=== PATIENT | male | born 1990 | race Two or more races ===

== ENCOUNTER 2016-10-05 20:12 | Emergency (ER) | payer OTHER ==
[~2016-10-05] VITALS: Ht 175.3 cm; Wt 81.6 kg
[2016-10-05] MEDS ORDERED: NKM (20:22)
[2016-10-05] MEDS ORDERED: Bacitracin Oint UD TOPIC ONE (20:30)
--- NOTE | 2016-10-05 20:31 | Emergency Room Report ---
History of Present Illness General Chief Complaint: Pain Source: Patient Present Illness HPI At 5:30 PM the patient was lifting a box. He felt something sharp in his left antecubital area. There was a spider there. (He was shown a picture of a black and states it was not this type of spider.) It's body and legs were brown. He's had itching and some swelling in the area. No muscle cramps at this time. No h/o allergies. Pain 4/4 improving. Is right-handed. His tetanus is up-to-date. No NVD. No hematuria/dysuria. Allergies: Coded Allergies: No Known Allergies (Unverified , 10/05/16) Patient History Past Medical History: see triage record Social History Narrative Works cleaning and hearing things. Reviewed Nursing Documentation: PMH: Agreed, PSxH: Agreed Nursing Documentation-PMH Past Medical History: No Stated History Review of Systems Constitutional: Denies: fever Cardiovascular: Denies: chest pain Gastrointestinal: Denies: abdominal pain Musculoskeletal: Reports: see HPI Skin: Reports: see HPI Neurological: Denies: numbness All Other Systems: negative except mentioned in HPI Physical Exam Vital Signs Date Time Temp Pulse Resp B/P Pulse Ox O2 Delivery O2 Flow Rate FiO2 10/05/16 20:18 98.4 63 14 123/72 96 Room Air Sp02 EP Interpretation: reviewed, normal General Appearance: well appearing, no apparent distress Head: normocephalic, atraumatic Eyes: bilateral eye PERRL, bilateral eye normal inspection ENT: hearing grossly normal, normal voice, moist mucus membranes Neck: full range of motion, supple Respiratory: no respiratory distress, speaking full sentences Cardiovascular #1: regular rate, rhythm Cardiovascular #2: 2+ radial (L) Gastrointestinal: normal inspection, normal bowel sounds, non tender Musculoskeletal: back normal, digits/nails normal, gait/station normal, normal range of motion, no calf tenderness Neurologic: alert, normal gait Psychiatric: mood/affect normal Skin: no rash, other - Bite left antecubital area with some surrounding erythema. Medical Decision Making Diagnostic Impression: Primary Impression: Spider bite Qualified Codes: T63.301A - Toxic effect of unspecified spider venom, accidental (unintentional), initial encounter ER Course The patient presents with a spider bite left antecubital area. This was a black envenomation. See other somatic complaints. The patient will be treated with local antibiotic ointment and also topical steroids. In addition he'll be given Benadryl here. His tetanus is up-to-date. Status: improved Disposition: HOME, SELF-CARE Condition: Improved Scripts Hydrocortisone (Hydrocortisone Cream 2.5%) Y Cream.appl 1 APPLIC TP BID, #10 GM Prov: Maxim Salazar M.D. 10/05/16 Bacitracin (Bacitracin) 28.4 Gm Oint...g. 1 APPLIC TOPIC BID, #10 GM Prov: Maxim Salazar M.D. 10/05/16 Maxim Salazar M.D. Oct 05, 2016 20:31
[2016-10-05] MEDS ORDERED: BACITRACIN15 GM TOPIC (20:33)
[2016-10-05] MEDS ORDERED: HYDROCORTISONE30 G2 TP (20:33)
[2016-10-05 20:55] VITALS: BP 123/72
== END 2016-10-05 20:55 | disposition home or self-care (01) ==
LOC: EMR 20:34
DX: T63.301A Toxic effect of unspecified spider venom, accidental (unintentional), initial encounter (principal); W57.XXXA Bitten or stung by nonvenomous insect and other nonvenomous arthropods, initial encounter; Y92.59 Other trade areas as the place of occurrence of the external cause; Y99.0 Civilian activity done for income or pay
CPT/HCPCS: 99284

== ENCOUNTER 2017-11-03 01:08 | Emergency (ER) | payer OTHER ==
[~2017-11-03] VITALS: Ht 175.3 cm; Wt 90.7 kg
[~2017-11-03 01:08] MED LIST: BACITRACIN15 GM TOPIC; HYDROCORTISONE30 G2 TP; NKM
--- NOTE | 2017-11-03 01:40 | Emergency Room Report ---
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 when he stood up and jumped up there was an object that was above his head that he had not seen it caused a laceration denies any lapse of consciousness denies any headache denies any neck pain denies any chest pain or shortness of breath and presents for evaluation of the laceration Allergies: Coded Allergies: No Known Allergies (Unverified , 10/05/16) Patient History Past Medical History: see triage record Pertinent Family History: none Reviewed Nursing Documentation: PMH: Agreed; PSxH: Agreed Nursing Documentation-PMH Past Medical History: No Stated History Review of Systems All Other Systems: negative except mentioned in HPI Physical Exam Vital Signs Date Time Temp Pulse Resp B/P (MAP) Pulse Ox O2 Delivery O2 Flow Rate FiO2 11/03/17 01:17 98.4 101 20 117/82 97 Room Air 98.4 Sp02 EP Interpretation: reviewed, normal General Appearance: well appearing, no apparent distress Head: normocephalic, other - 1 cm laceration right mid forehead Eyes: bilateral eye PERRL, bilateral eye EOMI ENT: normal pharynx, no angioedema Neck: full range of motion, supple Respiratory: lungs clear Cardiovascular #1: regular rate, rhythm Gastrointestinal: non tender, soft Musculoskeletal: normal inspection Neurologic: alert, oriented x3, responsive Skin: other - As above Lymphatic: no adenopathy Procedures Laceration/Wound Repair Laceration/Wound Repair : Consent: Verbal Wound Location: face Wound's Depth, Shape: into muscle, linear Wound Length (cm): 1 Wound Explored: clean Irrigated w/ Saline (ccs): 100 Betadine Prep?: Yes Anesthesia: 1% Lidocaine Volume Anesthetic (ccs): 2 Wound Debrided: minimal Wound Repaired With: sutures Suture Size/Type: 6:0 Number of Sutures: 4 Layer Closure?: No Sterile Dressing Applied?: Yes Patient Tolerated: Well Complications: None Medical Decision Making Diagnostic Impression: Primary Impression: Laceration ER Course Patient had laceration repair as noted in the procedural note tolerated the procedure well Patient does not meet emergency criteria for imaging Remains awake alert and at this time is stable for close outpatient follow-up Last Vital Signs Date Time Temp Pulse Resp B/P (MAP) Pulse Ox O2 Delivery O2 Flow Rate FiO2 11/03/17 01:17 98.4 101 20 117/82 97 Room Air 98.4 Status: improved Disposition: HOME, SELF-CARE Condition: Improved Referrals: NON PHYSICIAN (PCP) Additional Instructions: Patient is provided with the discharge instructions notified to follow up with primary doctor in the next 2-3 days otherwise return to the er with any worsening symptoms. Please note that this report is being documented using [employer]ON technology. This can lead to erroneous entry secondary to incorrect interpretation by the dictating instrument. Rob Delgado DO Nov 03, 2017 01:40
[2017-11-03 01:44] VITALS: BP 117/82
[2017-11-03] MEDS ORDERED: Bacitracin Oint UD TOPIC ONE (02:02)
[2017-11-03 02:14] VITALS: BP 117/82
== END 2017-11-03 02:15 | disposition home or self-care (01) ==
LOC: EMR 01:33
DX: S01.81XA Laceration without foreign body of other part of head, initial encounter (principal); W22.8XXA Striking against or struck by other objects, initial encounter; Y92.9 Unspecified place or not applicable
CPT/HCPCS: 99283

== ENCOUNTER 2018-04-24 20:00 | Emergency (ER) | payer OTHER ==
[~2018-04-24] VITALS: Ht 175.3 cm; Wt 97.5 kg
[2018-04-24 20:12] VITALS: BP 126/72
[2018-04-24] MEDS ORDERED: Tylenol #3 tab (300mg/30mg) ORAL ONE (20:45)
--- NOTE | 2018-04-24 21:03 | Emergency Room Report ---
History of Present Illness General Chief Complaint: Puncture Wound Source: Patient Present Illness HPI 27-year-old male presents to the emergency department complaining of 5 out of 10 in severity localized pain, tenderness and open puncture wound to the lateral aspect of the right middle finger. Patient reports that he was carrying some palm leaves and was stuck by one of the thorns. Patient states that they spent 25 minutes attempting to remove the thorn with tweezers however they were unsuccessful and it kept breaking off. Patient states he is up-to- date with his tetanus vaccination he denies blood thinning medications. Patient he is right-hand dominant. denies erythema , warmth or d/c from the wound. Allergies: Coded Allergies: No Known Allergies (Unverified , 10/05/16) Patient History Past Medical History: see triage record Past Surgical History: none Pertinent Family History: none Reviewed Nursing Documentation: PMH: Agreed; PSxH: Agreed Nursing Documentation-PMH Past Medical History: No Stated History Review of Systems Hematologic/Lymphatic: Denies: no symptoms, see HPI, anemia, blood clots, easy bleeding, easy bruising, swollen glands, diathesis, other All Other Systems: negative except mentioned in HPI Physical Exam Vital Signs Date Time Temp Pulse Resp B/P (MAP) Pulse Ox O2 Delivery O2 Flow Rate FiO2 04/24/18 20:14 98.2 65 16 113/60 97 Room Air Sp02 EP Interpretation: reviewed, normal General Appearance: no apparent distress, alert, GCS 15, non-toxic Head: normocephalic, atraumatic Eyes: bilateral eye normal inspection, bilateral eye PERRL ENT: hearing grossly normal, normal voice Neck: full range of motion Respiratory: lungs clear, normal breath sounds, speaking full sentences Cardiovascular #1: regular rate, rhythm, normal capillary refill Musculoskeletal: back normal, gait/station normal, normal range of motion, non- tender Neurologic: alert, oriented x3, responsive, motor strength/tone normal, sensory intact, speech normal, grossly normal Psychiatric: judgement/insight normal Skin: normal color, no rash, warm/dry, well hydrated, other - Puncture wound noted with visible FB just beneath the skin. some swelling -- location is the lateral aspect of the RMF at the PIP. Procedures Additional Procedure Procedure Narrative PROCEDURE: SUPERFICIAL SOFT TISSUE SLIVER FB REMOVAL: Verbal consent from patient was obtained to remove superficial ST FB from RMF Area was cleaned and draped in a sterile fashion using swabs from I & D kit. Digital ring block was performed using 1% lidocaine without epi, 4 mL which provided adequate anesthesia gentle Scraping using no. 11 blade was used until sliver was visualized and was removed with posterior digital pressure, Sliver came out in one piece. Pt. tolerated well. there were no complications. -bacitracin and sterile dressing was applied by clerical investigator. Medical Decision Making PA Attestation Dr. talamantes is my supervising Physician whom patient management has been discussed with. Diagnostic Impression: Primary Impression: Puncture wound ER Course 27-year-old male presents to the emergency department complaining of 5 out of 10 in severity localized pain, tenderness and open puncture wound to the lateral aspect of the right middle finger. Patient reports that he was carrying some palm leaves and was stuck by one of the thorns. Patient states that they spent 25 minutes attempting to remove the thorn with tweezers however they were unsuccessful and it kept breaking off. Patient states he is up-to- date with his tetanus vaccination he denies blood thinning medications. Patient he is right-hand dominant. denies erythema , warmth or d/c from the wound. Ddx considered but are not limited to cellulitis, retained FB, cyst/abscess, puncture wound, laceration Vital signs: are WNL, pt. is afebrile H&PE are most consistent with retained FB in the ST of RMF ORDERS: none required at this time, the diagnosis is clinical - - X-ray FINGER 3 views: unable to visualize radiopaque fb ED INTERVENTIONS: Arthur PO see procedure note - Incision and removal - Bacitracin is applied. DISCHARGE: At this time pt. is stable for d/c to home. Will provide printed patient care instructions, and any necessary prescriptions. Care plan and follow up instructions have been discussed with the patient prior to discharge. Other X-Ray Diagnostic Results Other X-Ray Diagnostic Results : X-Ray ordered: Finger # of Views/Limited Vs Complete: 3 View Indication: Pain EP Interpretation: Yes PA Xray: Interpretation reviewed, by supervising MD, and agrees with findings. Interpretation: no dislocation, no fractures, nonspecific bowel gas, other - ST swelling noted, no obvious radiopaque FB seen. Impression: Other Electronically Signed by: Kina Arguello PA-C Last Vital Signs Date Time Temp Pulse Resp B/P (MAP) Pulse Ox O2 Delivery O2 Flow Rate FiO2 04/24/18 20:14 98.2 65 16 113/60 97 Room Air Disposition: HOME, SELF-CARE Condition: Stable Scripts Bacitracin/Polymyxin B Sulfate (BACITRACIN-POLYMYXIN OINTMENT) 28.35 Gm Oint...g. 1 APPLIC TP BID, #28.3 GM Prov: Kina Arguello 04/24/18 Trimethoprim/Sulfamethoxazole 160/800* (BACTRIM DS TABLET*) 1 Each Tablet 1 TAB ORAL TWICE A DAY for 7 Days, #14 TAB Prov: Kina Arguello 04/24/18 Cephalexin* (KEFLEX*) 500 Mg Capsule 500 MG ORAL EVERY 12 HOURS for 7 Days, #14 CAP 0 Refills Prov: Kina Arguello 04/24/18 Patient Instructions: Puncture Wound Additional Instructions: Take medications as directed. Follow up with a Primary Care Provider in 3-5 days, even if your symptoms have resolved. --Please review list of primary care clinics, if you do not already have a primary care provider Return sooner to ED if new symptoms occur, or current symptoms become worse. - Please note that this Emergency Department Report was dictated using [employer] service technician technology software, occasionally this can lead to erroneous entry secondary to interpretation by the dictation equipment. Kina Arguello Apr 24, 2018 21:03
--- NOTE | 2018-04-24 21:13 | Diagnostic Imaging Report ---
EXAM: XR Right Finger(s), 2 or More Views CLINICAL HISTORY: PAIN TECHNIQUE: Frontal, lateral and oblique views of finger(s) of the right hand. COMPARISON: No relevant prior studies available. FINDINGS: Bones/joints: No acute fracture or malalignment. Soft tissues: Unremarkable. No radiopaque foreign body. IMPRESSION: No acute fracture or malalignment.
[2018-04-24] MEDS ORDERED: CEPHALEXIN500 MG ORAL (21:49)
[2018-04-24] MEDS ORDERED: BACITRACIN-P28.35 GM TP (21:49)
[2018-04-24] MEDS ORDERED: BACTRIM DS TAB1 EAC1 ORAL (21:49)
[2018-04-24 22:20] VITALS: BP 126/71
[2018-04-24 22:30] VITALS: BP 113/60
== END 2018-04-24 22:30 | disposition home or self-care (01) ==
LOC: EMR 20:32
DX: S61.242A Puncture wound with foreign body of right middle finger without damage to nail, initial encounter (principal); W45.8XXA Other foreign body or object entering through skin, initial encounter; Y92.59 Other trade areas as the place of occurrence of the external cause; Y99.0 Civilian activity done for income or pay
CPT/HCPCS: 99283